=== PATIENT | male | born 1975 | race African-American/Black ===

== ENCOUNTER 2017-11-27 18:48 | Emergency (ER) | payer OTHER ==
[~2017-11-27] VITALS: Ht 190.5 cm; Wt 87.5 kg
[2017-11-27 18:48] VITALS: BP 151/92
[~2017-11-27 18:48] MED LIST: FEXO1TAB8 PO
== END 2017-11-27 19:38 | disposition home or self-care (01) ==
LOC: ER 18:53
DX: L73.8 Other specified follicular disorders (principal); J32.9 Chronic sinusitis, unspecified; Z88.6 Allergy status to analgesic agent
CPT/HCPCS: 99283; A4606; Z7610

== ENCOUNTER 2019-03-19 18:38 | Emergency (ER) | payer MEDICAID, OTHER ==
[~2019-03-19] VITALS: Ht 188 cm; Wt 86.6 kg
[2019-03-19 18:45] VITALS: BP 126/82
[2019-03-19] MEDS ORDERED: METHOCARBAMOL (750MG) 750 MG TABLET PO SCH (19:30)
[2019-03-19] MEDS ORDERED: KETOROLAC TROMETHAMINE INJ 60 MG/2 ML VIAL IM ONE (19:30)
[2019-03-19] MEDS ORDERED: METHOCARBAMOL (500MG) 500 MG TABLET ONE (19:33)
[2019-03-19] MEDS ORDERED: KETOROLAC TROMETHAMINE INJ 30 MG/ML VIAL ONE (19:33)
== END 2019-03-19 20:25 | disposition home or self-care (01) ==
LOC: ER 18:40
DX: S39.012A Strain of muscle, fascia and tendon of lower back, initial encounter (principal); Z88.6 Allergy status to analgesic agent; Z79.899 Other long term (current) drug therapy; X58.XXXA Exposure to other specified factors, initial encounter; Y93.B9 Activity, other involving muscle strengthening exercises; Y92.89 Other specified places as the place of occurrence of the external cause; Y99.8 Other external cause status
CPT/HCPCS: 96372; 99283; J1885

== ENCOUNTER 2020-06-21 13:29 | Emergency (ER) | payer MEDICAID ==
[~2020-06-21] VITALS: Ht 190.5 cm; Wt 87.1 kg
[2020-06-21 14:27] VITALS: BP 151/100
[2020-06-21] MEDS ORDERED: NAPR-1164 PO (14:53)
[2020-06-21] MEDS ORDERED: IBUPROFEN 600 MG TABLET PO ONE (15:00)
[2020-06-21] MEDS ORDERED: IBUPROFEN 600 MG TABLET ONE (15:16)
== END 2020-06-21 15:54 | disposition home or self-care (01) ==
LOC: ER 13:33
DX: R10.31 Right lower quadrant pain (principal); Z88.6 Allergy status to analgesic agent; Z79.899 Other long term (current) drug therapy

== ENCOUNTER 2020-11-20 21:47 | Emergency (ER) | payer MEDICAID ==
[~2020-11-20] VITALS: Ht 190.5 cm; Wt 96.2 kg
[~2020-11-20 21:47] MED LIST changes: +NAPR-1164 PO
[2020-11-20 22:10] VITALS: BP 127/74
[2020-11-20] MEDS ORDERED: CEPH500T PO (22:31)
[2020-11-20] MEDS ORDERED: SULF1TAB48 PO (22:31)
--- NOTE | 2020-11-20 22:38 | NUR ---
Patient discharged to home in stable condition. Written and verbal after care instructions given. Patient verbalizes understanding of instruction.
[2020-11-20] MEDS ORDERED: SULFAMETH/TRIMETH 800/160 MG 1 UDTAB TABLET ONE (22:40)
[2020-11-20] MEDS ORDERED: CEPHALEXIN MONOHYDRATE 500 MG CAPSULE PO ONE (22:40)
[2020-11-20] MEDS: CEPHALEXIN MONOHYDRATE 500 MG CAPSULE PO ONE (22:48)
[2020-11-20] MEDS: SULFAMETH/TRIMETH 800/160 MG 1 UDTAB TABLET PO ONE (22:48)
== END 2020-11-20 22:49 | disposition home or self-care (01) ==
LOC: ER 21:47
DX: L73.8 Other specified follicular disorders (principal); Z88.6 Allergy status to analgesic agent; Z79.899 Other long term (current) drug therapy

== ENCOUNTER 2020-11-22 19:47 | Emergency (ER) | payer MEDICAID ==
[~2020-11-22] VITALS: Ht 190.5 cm; Wt 96.2 kg
[~2020-11-22 19:47] MED LIST changes: +CEPH500T PO; +SULF1TAB48 PO
--- NOTE | 2020-11-22 19:50 | NUR ---
PT BIBSELF C/O LEFT ARMPIT ABSCESS. PT [id number] BREATHING EVENLY AND UNLABORED. MD AT BEDSIDE. PT ATTACHED TO MONITOR AND POX. PT CURRENTLY ON ATB TX. SKIN WARM AND DRY.PT GIVEN BLANKET AND CALL LIGHT WITHN REACH
--- NOTE | 2020-11-22 20:06 | NUR ---
Patient discharged to home in stable condition. Written and verbal after care instructions given. Patient verbalizes understanding of instruction. pT ambulatory with a steady gait
[2020-11-22 20:11] VITALS: BP 125/78
== END 2020-11-22 20:06 | disposition home or self-care (01) ==
LOC: ER 19:49
DX: L73.2 Hidradenitis suppurativa (principal); Z88.6 Allergy status to analgesic agent; Z79.899 Other long term (current) drug therapy

== ENCOUNTER 2021-02-02 15:49 | Emergency (ER) | payer MEDICAID ==
[~2021-02-02] VITALS: Ht 190.5 cm; Wt 94.5 kg
--- NOTE | 2021-02-02 16:09 | NUR ---
THE PATIENT BIBS FOR C/O LEFT EYE PAIN 5/10 WITH LEFT EYE REDNESS AND EYELID REDNESS/ SWELLING S/P CAP OF JUICE BOTTLE HITTING THE EYE. NO DISCHARGE NOTED. WILL CONTINUE TO MONITOR THE PATIENT.
[2021-02-02] MEDS ORDERED: FLUORESCEIN SODIUM OPHTH 1 EA STRIP ONE ×2 (17:13→17:18)
--- NOTE | 2021-02-02 17:28 | NUR ---
PT GIVEN EYEDROPS AND IS HOLDING GAUZE AGAINST EYE
[2021-02-02] MEDS ORDERED: TETRACAINE HCL 0.5% OPHTALMIC 15 ML BOTTLE OP ONE (17:30)
[2021-02-02] MEDS ORDERED: FLUORESCEIN SODIUM OPHTH 1 EA STRIP OP ONE (17:30)
--- NOTE | 2021-02-02 17:40 | NUR ---
VISUAL ACUITY TEST BEING DONE
[2021-02-02] MEDS ORDERED: POLY10DR3 LEFTEYE (17:49)
--- NOTE | 2021-02-02 18:08 | NUR ---
L EYE COVERED WITH GAUZE
--- NOTE | 2021-02-02 18:14 | NUR ---
Patient discharged to home in stable condition. Written and verbal after care instructions given. Patient verbalizes understanding of instruction.
[2021-02-02 18:15] VITALS: BP 138/77
== END 2021-02-02 18:16 | disposition home or self-care (01) ==
LOC: ER 15:51
DX: S05.02XA Injury of conjunctiva and corneal abrasion without foreign body, left eye, initial encounter (principal); G89.29 Other chronic pain; J45.909 Unspecified asthma, uncomplicated; Z98.890 Other specified postprocedural states; Z88.6 Allergy status to analgesic agent; Z79.899 Other long term (current) drug therapy; W22.8XXA Striking against or struck by other objects, initial encounter; Y93.89 Activity, other specified; Y92.89 Other specified places as the place of occurrence of the external cause; Y99.8 Other external cause status

== ENCOUNTER 2022-08-19 11:23 | Emergency (ER) | payer MEDICAID ==
[~2022-08-19] VITALS: Ht 190.5 cm; Wt 95.3 kg
[~2022-08-19 11:23] MED LIST changes: +POLY10DR3 LEFTEYE
[2022-08-19] MEDS ORDERED: KETOROLAC TROMETHAMINE 15 MG/ML VIAL ONE (11:58)
[2022-08-19] MEDS ORDERED: MORPHINE SULFATE INJ 4 MG/ML DISP.SYRIN ONE (11:59)
[2022-08-19] MEDS: KETOROLAC TROMETHAMINE INJ 30 MG/ML VIAL IM ONE (12:09)
[2022-08-19] MEDS: MORPHINE SULFATE INJ 2 MG/ML DISP.SYRIN IM ONE (12:09)
[2022-08-19] MEDS ORDERED: IBUP-1955 PO (12:21)
[2022-08-19] MEDS ORDERED: HYDR-4209 PO (12:21)
[2022-08-19] MEDS ORDERED: CYCL5TAB PO (12:21)
[2022-08-19] MEDS ORDERED: METH4TAB17 PO (12:21)
[2022-08-19 13:02] VITALS: BP 130/82
== END 2022-08-19 13:03 | disposition home or self-care (01) ==
LOC: ER 11:27
DX: M54.42 Lumbago with sciatica, left side (principal); M54.41 Lumbago with sciatica, right side; J45.909 Unspecified asthma, uncomplicated; Z79.899 Other long term (current) drug therapy; Z88.1 Allergy status to other antibiotic agents
CPT/HCPCS: 99284; 96372 ×2; J2270; J1885

== ENCOUNTER 2022-09-24 10:38 | Emergency (ER) | payer MEDICAID ==
[~2022-09-24] VITALS: Ht 190.5 cm; Wt 95.3 kg
[~2022-09-24 10:38] MED LIST changes: +CYCL5TAB PO; +HYDR-4209 PO; +IBUP-1955 PO; +METH4TAB17 PO
--- NOTE | 2022-09-24 11:00 | NUR ---
Tamela maria in EDM - 09/24/22 at 1404 by PHGETTAS RECEIVED PT 47 YRS MALE CAME FROM HOME BY PRAMDIC C/O LOWER BACK PAIN AND LT LEG PAIN FOR 3 DAYS GOTING WOSE UNABLE TO AMBLATE DINESES HX TRAMA Addendum: 09/24/22 at 1402 by PHGIANTAS Amendment crow in ED - 09/24/22 at 1404 by PHGETTAS RECEIVED PT 47 YRS MALE FROM HOME WALKIN IN C/O PAIN LOWER BACK AND RT LEG FOR 3 DAYS UNABLE TO AMBULATE DINESES hx truma
--- NOTE | 2022-09-24 11:05 | NUR ---
RECEIVED PT 47 YRS MALE FROM HOME C/O LOWER BACK PAIN AND RT LEG PAIN FOR 3 DAYS DINESES HX OF TRUMA
--- NOTE | 2022-09-24 11:25 | NUR ---
SEEN BY DR. HOLLIS
[2022-09-24] MEDS ORDERED: METHOCARBAMOL (750MG) 750 MG TABLET PO SCH (11:30)
[2022-09-24] MEDS ORDERED: IBUPROFEN 400 MG TABLET PO ONE (11:30)
[2022-09-24] MEDS ORDERED: predniSONE 20 MG TABLET PO ONE (11:30)
[2022-09-24] MEDS ORDERED: LIDOCAINE 5% (PATCH) 1 EA PATCH TP SCH (11:30)
[2022-09-24] MEDS ORDERED: LIDOCAINE 5% (PATCH) 1 EA PATCH TP ONE (11:34)
[2022-09-24] MEDS ORDERED: predniSONE 20 MG TABLET ONE (11:35)
[2022-09-24] MEDS ORDERED: IBUPROFEN 400 MG TABLET ONE (11:35)
[2022-09-24] MEDS ORDERED: METHOCARBAMOL (500MG) 500 MG TABLET PO ONE (12:00)
--- NOTE | 2022-09-24 12:00 | NUR ---
RESTING AT THIS TIME
[2022-09-24] MEDS ORDERED: METHOCARBAMOL (500MG) 500 MG TABLET ONE (12:08)
[2022-09-24] MEDS ORDERED: HYDROCODONE/APAP 5/325MG TABLET PO ONE (13:00)
--- NOTE | 2022-09-24 13:00 | NUR ---
PAIN WHEN MOVED UNABLE TO AMBLATE
--- NOTE | 2022-09-24 13:35 | NUR ---
PAINFULL AT THIS TIME WITH NO SOB
[2022-09-24] MEDS ORDERED: HYDROCODONE/APAP 5/325MG TABLET ONE (13:43)
--- NOTE | 2022-09-24 13:57 | NUR ---
AMBULTATE TO BR VODING FREELY ABLE TO AMBLATE STILL PAIN LEVEL 9/10 RT SIDE PAIN
--- NOTE | 2022-09-24 14:30 | NUR ---
Pt able to amblate from side to side EASY AND AMBLATE walking with stady gaite
[2022-09-24] MEDS ORDERED: IBUP-1957 PO (14:33)
[2022-09-24] MEDS ORDERED: PRED20TA PO (14:33)
[2022-09-24] MEDS ORDERED: LIDO30AD10 TP (14:33)
[2022-09-24] MEDS ORDERED: METH-649 PO (14:33)
--- NOTE | 2022-09-24 15:03 | NUR ---
Patient discharged to home in stable condition. Written and verbal after care instructions given. Patient verbalizes understanding of instruction.
[2022-09-24 15:14] VITALS: BP 151/96
== END 2022-09-24 15:15 | disposition home or self-care (01) ==
LOC: ER 10:47
DX: M54.42 Lumbago with sciatica, left side (principal); J45.909 Unspecified asthma, uncomplicated; Z88.8 Allergy status to other drugs, medicaments and biological substances; Z79.899 Other long term (current) drug therapy
CPT/HCPCS: 99285; J7512

== ENCOUNTER 2025-03-03 19:53 | Emergency (ER) | payer MEDICAID ==
[~2025-03-03] VITALS: Ht 190.5 cm; Wt 83.0 kg
[~2025-03-03 19:53] MED LIST changes: +IBUP-1957 PO; +LIDO30AD10 TP; +METH-649 PO; +PRED20TA PO
[2025-03-03 22:05] LABS: PLATELET COUNT (AUTO) 238 K/uL (150-450); RED BLOOD CELL COUNT(AUTO) 4.31 MIL/uL (4.5-6.0); RED CELL DISTRIBUTION WIDTH 14.2 % (11.5-15.0); WHITE BLOOD COUNT (AUTO) 4.3 K/uL (4.3-11.0)
[2025-03-03 22:12] LABS: CALCIUM, SERUM 8.4 mg/dL (8.5-10.1); CREATININE 1.0 mg/dL (0.6-1.3); SODIUM SERUM 130 mmol/L (136-145); UREA NITROGEN, BLOOD 17 mg/dL (7-18)
[2025-03-04] MEDS ORDERED: IBUP-1957 PO (00:21)
[2025-03-04] MEDS ORDERED: IBUPROFEN 400 MG TABLET ONE (00:23)
[2025-03-04] MEDS: IBUPROFEN 400 MG TABLET PO ONE (00:26)
[2025-03-04 00:31] VITALS: BP 141/85; TEMP 98.1; O2SAT 98
== END 2025-03-04 00:31 | disposition home or self-care (01) ==
LOC: ER 19:59
DX: R07.89 Other chest pain (principal); J45.909 Unspecified asthma, uncomplicated; Z88.6 Allergy status to analgesic agent; Z79.52 Long term (current) use of systemic steroids; Z79.1 Long term (current) use of non-steroidal anti-inflammatories (NSAID)
CPT/HCPCS: 36415; 71045-TC; 80048-TC; 84484-TC; 85025-TC; 85378-TC